=== PATIENT | female | born 1935 | race Asian ===

== ENCOUNTER 2017-05-16 13:00 | Outpatient (RCR) | payer OTHER | END 2017-05-21 | disposition home or self-care (01) | LOC: PTY 13:00 | DX: R26.89 Other abnormalities of gait and mobility (principal) ==

== ENCOUNTER 2017-05-22 10:30 | Outpatient (RCR) | payer OTHER | END 2017-06-21 | disposition home or self-care (01) | LOC: PTY 10:30 | DX: R26.89 Other abnormalities of gait and mobility (principal) ==

== ENCOUNTER 2017-06-24 11:02 | Outpatient (RCR) | payer OTHER | END 2017-07-21 | disposition home or self-care (01) | LOC: PTY 11:02 | DX: R26.89 Other abnormalities of gait and mobility (principal) ==